=== PATIENT | male | born 1955 | race Caucasian/White ===

== ENCOUNTER 2017-11-14 00:18 | Emergency (ER) | payer MEDICAID ==
[~2017-11-14] VITALS: Ht 182.9 cm; Wt 68.0 kg
[2017-11-14 00:34] VITALS: BP 175/100
== END 2017-11-14 01:21 | disposition left against medical advice (07) ==
LOC: EDBD 00:21 → ER 00:21
DX: S01.81XA Laceration without foreign body of other part of head, initial encounter (principal); Z53.21 Procedure and treatment not carried out due to patient leaving prior to being seen by health care provider; W22.8XXA Striking against or struck by other objects, initial encounter; Y93.89 Activity, other specified; Y99.8 Other external cause status; Y92.89 Other specified places as the place of occurrence of the external cause

== ENCOUNTER 2019-04-13 22:28 | Emergency (ER) | payer MEDICAID ==
[~2019-04-13] VITALS: Ht 180.3 cm; Wt 68.0 kg
[2019-04-13 23:19] LABS: Basophils # (auto) 0.1 uL; Basophils % (auto) 0.7 % (0.0-2.0); Eosinophils # (auto) 0.3 uL; Eosinophils % (auto) 4.1 % (0.0-7.0); Hematocrit 42.8 % (41.0-53.0); Lymphocytes # (auto) 2.6 uL; Lymphocytes % (auto) 30.7 % (10.0-50.0); Mean Corpuscular Hemoglobin 30.9 pg (28.0-32.0); Mean Corpuscular Hgb Conc. 32.8 g/dL (32.0-36.0); Mean Corpuscular Volume 94.5 fL (80.0-100.0); Monocytes % (auto) 11.4 % (0.0-12.0); Neutrophils # (auto) 4.4 uL; Neutrophils % (auto) 53.1 % (37.0-80.0); Nucleated Red Blood Cells % 0.1 %; Platelet Count (auto) 274 10^3/uL (140-450); Red Blood Cells 4.53 10^6/uL (4.5-5.90); Red Cell Distribution Width 15.8 % (11.8-14.3); White Blood Cell 8.4 10^3/uL (4.4-10.8)
[2019-04-13 23:33] LABS: INR 0.97 (0.9-1.15); Partial Thromboplastin Time 27.8 sec (23.64-32.05)
[2019-04-13 23:42] LABS: Albumin 3.7 g/dL (3.4-5.0); Anion Gap 8 (5-15); Blood Urea Nitrogen 41 mg/dL (7-18); Calcium 9.5 mg/dL (8.5-10.1); Carbon Dioxide 25 mmol/L (21-32); Chloride 106 mmol/L (98-107); Glucose 110 mg/dL (74-106); Potassium 4.8 mmol/L (3.5-5.1); Sodium 139 mmol/L (136-145)
[2019-04-13 23:47] LABS: Alanine Aminotransferase 40 U/L (16-61); Alkaline Phosphatase 78 U/L (45-117); Aspartate Aminotransferase 42 U/L (15-37); BUN/Creatinine Ratio 29.1; Bilirubin, Total 0.4 mg/dL (0.2-1.0); Blood Alcohol < 3.0 mg/dL (0-5); GFR African American 66 mL/min; GFR Non-African American 54 mL/min; Total Protein 8.1 g/dL (6.4-8.2)
[2019-04-14] MEDS ORDERED: MORPHINE SULF INJ 2 MG/ML SYRINGE 1ML IV ONE (04:45)
[2019-04-14] MEDS ORDERED: ONDANSETRON HCL 4 MG/2 ML VIAL IV ONE ×2 (04:45→07:45)
[2019-04-14] MEDS ORDERED: MORPHINE SULFATE 4 MG/ML SYR/VIAL IV ONE (07:45)
[2019-04-14 10:07] VITALS: BP 143/100
== END 2019-04-14 11:03 | disposition home or self-care (01) ==
LOC: ER 22:35
DX: S93.401A Sprain of unspecified ligament of right ankle, initial encounter (principal); S29.011A Strain of muscle and tendon of front wall of thorax, initial encounter; X50.0XXA Overexertion from strenuous movement or load, initial encounter; Y93.89 Activity, other specified; Y92.89 Other specified places as the place of occurrence of the external cause; Y99.8 Other external cause status
CPT/HCPCS: 36415; 71046; 73030; 73130; 73610; 73700; 80053; 80320; 83605; 85025; 85610; 85730; 87040; 93005; 96374; 96375; 96376; 99284; J2270; J2405

== ENCOUNTER 2024-05-28 11:52 | Emergency (ER) | payer MEDICAID ==
[~2024-05-28] VITALS: Ht 182.9 cm; Wt 79.9 kg
[2024-05-28 12:09] VITALS: PULSE 67; RESP 16; TEMP 97.1; O2SAT 98
[2024-05-28] MEDS: cloNIDine HCL 0.1 MG TAB PO ONE (12:15)
[2024-05-28 13:24] VITALS: BP 128/89; PULSE 60
[2024-05-28] MEDS ORDERED: LISI20TA56 PO (13:24)
== END 2024-05-28 13:32 | disposition home or self-care (01) ==
LOC: ER 11:52
DX: M67.471 Ganglion, right ankle and foot (principal); M67.421 Ganglion, right elbow; I10 Essential (primary) hypertension
CPT/HCPCS: 73080

== ENCOUNTER 2025-08-21 10:45 | Day surgery (SDC) | payer MEDICAID ==
[2025-08-15 12:33] LABS: Hematocrit 44.5 % (41.0-53.0); Hemoglobin 15.0 g/dL (13.5-17.5); Mean Corpuscular Hemoglobin 31.0 pg (28.0-32.0); Mean Corpuscular Volume 92.0 fL (80.0-100.0); Nucleated Red Blood Cells % 0.1 %
[2025-08-15 12:40] LABS: Urine Protein, UAD TRACE (Negative)
[2025-08-15 12:55] LABS: INR 1.04 (0.9-1.15); Partial Thromboplastin Time 27.2 SEC (24.5-34.5); Prothrombin Time 11.0 sec (9.3-11.8)
[2025-08-15 13:25] LABS: Alanine Aminotransferase 32 U/L (7-40); Albumin 4.5 g/dL (3.2-4.8); Alkaline Phosphatase 84 U/L (46-116); Anion Gap 8 (5-15); BUN/Creatinine Ratio 15.0 (10.0-20.0); Blood Urea Nitrogen 16 mg/dL (9-23); Calcium 9.6 mg/dL (8.7-10.4); Carbon Dioxide 27 mmol/L (20-31); Potassium 4.9 mmol/L (3.5-5.1); Sodium 143 mmol/L (136-145); Total Protein 7.8 g/dL (5.7-8.2)
[2025-08-15 13:26] LABS: Bilirubin, Total 0.4 mg/dL (0.2-1.0)
[2025-08-15 13:28] LABS: Chloride 108 mmol/L (98-107); Glucose 74 mg/dL (74-106)
[~2025-08-21] VITALS: Ht 180.3 cm; Wt 90.3 kg
[~2025-08-21 10:45] MED LIST: ALBU0.084 IN
[2025-08-21] MEDS ORDERED: ceFAZolin 2 GM/D5W50ml 50 ML IV ONE (11:11)
[2025-08-21] MEDS: LIDOCAINE 1% HCL (LOCAL ANESTH.) INJ 20ML MDV ONE (12:15)
--- NOTE | 2025-08-21 12:24 | DVHOP2 ---
Operative Report - 2 Report Details Date: 08/21/25 Preop Diagnosis: 1. Right foot ganglion cyst 2. Right foot pain Postop Diagnosis: Same as preop Surgeon: Mick Mcbride MD Anesthesiologist: None Anesthesia: Local Consent: The patient was informed of the risks and benefits of the procedure. These include but are not limited to complications of anesthesia, postoperative infection, incomplete relief of symptoms, recurrence of symptoms, damage to blood vessels, nerves and tendons, deep venous thrombosis, pulmonary embolism and possible need for repeat surgery in the future. Complications: None Estimated Blood Loss: Minimal Findings: Consistent with diagnosis Indications for Surgery: Worsening right foot pain Name of Procedure Performed 1. Right foot ganglion cyst excision ([id number]) Procedure Details Procedure Details: PRE-PROCEDURE INFORMATION: In the pre-op holding area, the extremity to be operated on was clearly marked and the patient verified correct laterality of the marking. The patient was transferred to the OR table and placed in a supine position. A timeout was performed in which identification of the correct patient, procedure, location, and materials was done. The right foot and leg were prepped and draped in normal sterile fashion. DESCRIPTION OF PROCEDURE: Attention was directed to the right lateral foot where a small incision was made to gain access to the cyst that was beneath the subcutaneous layers. Using sharp and blunt dissection, the cyst was able to be delineated and the cyst was adequately removed. This cyst appeared to be consistent with a ganglion cyst. This cyst was sent to pathology for evaluation. After adequate visualization revealed that the cyst had been removed in its entirety, the wound was irrigated copiously with normal saline. All surgical wounds were irrigated copiously with saline and closed in layers with the aforementioned suture material. A dry sterile dressing was placed on the surgical extremity. The patient was placed in a postop shoe POSTOPERATIVE INFORMATION: The patient tolerated the above noted procedure and anesthesia well and was transferred to the PACU with vital signs stable, and vascular status intact with capillary refill intact to all digits. Postoperative instructions reviewed in detail with the patient with written instructions provided. Patient will return to clinic in approximately 10-14 days for first postoperative visit. Patient has the number of the clinic and was instructed to call prior to that time should any problems, questions, or concerns arise. Specimen: Right foot ganglion cyst Condition Good Disposition Home Visit Coding Podiatry Date of Service if different f: Aug 21, 2025 Billing Provider: MICK MCBRIDE DPM Podiatry Common Visit Codes: PROCEDURE ONLY MICK MCBRIDE DPM Aug 21, 2025 12:24
[2025-08-21 12:30] VITALS: PULSE 62; RESP 14; TEMP 98.1; O2SAT 96
[2025-08-21 12:45] VITALS: BP 128/94; PULSE 61; RESP 13; O2SAT 95
== END 2025-08-21 13:00 | disposition home or self-care (01) ==
LOC: SUR 10:45
PROVIDERS: ATTEND Podiatrist
DX: M67.471 Ganglion, right ankle and foot (principal); Q66.71 Congenital pes cavus, right foot; I10 Essential (primary) hypertension; I25.10 Atherosclerotic heart disease of native coronary artery without angina pectoris; I25.2 Old myocardial infarction; J43.8 Other emphysema; Z79.899 Other long term (current) drug therapy; Z98.890 Other specified postprocedural states
CPT/HCPCS: 28090; 36415; 80053; 81001; 85025; 85610; 85730; 88305; 88312; 88341; 88342; A4649; J0690; J2003